=== PATIENT | female | born 1940 | race Caucasian/White ===

== ENCOUNTER → 2018-01-04 | Outpatient (CLI) | payer OTHER ==
[~2018-01-04] MED LIST: AMOCLA875 PO; CARV6.25 PO; CIPRO500 MG PO; CONESTTC PV; DIGO.125 PO; FURO20 PO; LISI5 PO; MEDR10 PO; MINO100 PO; MULVITMIND PO; OXYACE5T PO; Roxicodone5 MG PO; WARF2 PO
[2018-01-04 18:02] LABS: BASOPHILS ABSOLUTE AUTO 0.05 K/mm3 (0.00-0.23); BASOPHILS PERCENT AUTO 1 % (0-2); EOSINOPHILS ABSOLUTE AUTO 0.11 K/mm3 (0.00-0.68); EOSINOPHILS PERCENT AUTO 2 % (0-6); Hematocrit 40.3 % (33.0-51.0); IMMATURE GRAN ABSOLUTE AUTO 0.01 K/mm3 (0.00-0.10); IMMATURE GRAN PERCENT AUTO 0 % (0-1); LYMPHOCYTES ABSOLUTE AUTO 1.91 K/mm3 (0.84-5.20); LYMPHOCYTES PERCENT AUTO 29 % (21-46); MONOCYTES ABSOLUTE AUTO 0.52 K/mm3 (0.16-1.47); MONOCYTES PERCENT AUTO 8 % (4-13); Mean Corpuscular HGB 29.5 pg (26.0-34.0); Mean Corpuscular HGB Conc 32.3 g/dL (31.5-36.5); Mean Corpuscular Volume 91 fL (80-100); Mean Platelet Volume 12.7 fL (9.1-12.4); NEUTROPHILS ABSOLUTE AUTO 3.98 K/mm3 (1.96-9.15); NEUTROPHILS PERCENT AUTO 60 % (41-73); Platelet Count 197 K/mm3 (150-400); RDW Coefficient Variation 14.2 % (11.7-14.2); RDW Standard Deviation 47.8 fL (35.1-46.3); Red Blood Cell Count 4.41 M/mm3 (3.80-5.20); White Blood Cell Count 6.58 K/mm3 (4.00-11.30)
[2018-01-04 18:36] LABS: Alanine Aminotransfer (ALT/SGP 31 U/L (12-78); Albumin, Blood 4.1 g/dL (3.4-5.0); Albumin/Globulin Ratio 1.6 (0.8-1.8); Alk Phos 90 U/L (50-136); Anion Gap 8 mmol/L (6-16); Aspartate Aminotrans (AST/SGOT 30 U/L (12-37); Bilirubin, Total 0.6 mg/dL (0.1-1.0); Blood Urea Nitrogen 20 mg/dL (8-24); Bun/Creatinine Ratio 29.9 (12.0-20.0); CO2, Blood 33 mmol/L (21-32); Calcium, Blood 9.5 mg/dL (8.5-10.1); Chloride, Blood 102 mmol/L (98-108); Creatinine, Blood 0.67 mg/dL (0.40-1.00); Globulin, Blood 2.5 g/dL (2.2-4.0); Glomerular Filtration Rate >60 (60-); Glucose, Blood 92 mg/dL (70-99); Potassium, Blood 4.4 mmol/L (3.5-5.5); Sodium, Blood 143 mmol/L (136-145); Total Protein, Blood 6.6 g/dL (6.4-8.2)
== END | disposition home or self-care (01) ==
LOC: LAB SHORT 15:37 → LAB 15:37
PROVIDERS: Nurse Practitioner Adult Health
DX: I48.91 Unspecified atrial fibrillation (principal)
CPT/HCPCS: 80053; 85025

== ENCOUNTER → 2018-05-10 | Outpatient (CLI) | payer OTHER | END | disposition home or self-care (01) | LOC: LAB SHORT 14:45 → LAB 14:45 | DX: R30.0 Dysuria (principal) | CPT/HCPCS: 87077; 87086; 87186 ==

== ENCOUNTER 2018-10-25 09:15 | Day surgery (SDC) | payer OTHER ==
[~2018-10-25] VITALS: Ht 157.5 cm; Wt 54.0 kg
[~2018-10-25 09:15] MED LIST changes: +ACETAMINOPHEN500 MG PO; +ATOR20 PO; +Acidophilus La100 GM; +Aspirin EC81 MG PO; +Calcium Citrat1 EA10 PO; +Cvs Glucosamin1 EAC2 PO; +FISH OIL 1,0001 EAC1 PO; +GABA600 PO; +GINKGO BILOBA120 MG; +Ginseng100 MG PO; +L-Lysine500 M1 PO; +Multiple Vitam1 EACH PO; +Nitrostat0.4 MG SL; +TRAM50; +VITAMIN C500 M1 PO
[2018-10-25 10:25] LABS: International Normalized Ratio 1.36
--- NOTE | 2018-10-25 10:54 | NUR ---
10/25/18 1054 Miguel Yoo A LATE ENTRY FOR 1020. DR QUICK NOTIFIED THAT THE RESULTS FROM THE STAT PT/INR HE ORDERED IN PRE OP WOULD NOT BE READY FOR AN ADDITIONAL [address] QUICK OKAYED BRINGING THE PT INTO THE OR FOR THE MAY BLOCK WITHOUT HAVING THE RESULTS. DR AGUILAR ALSO OKAY WITH BRINGING THE PT TO THE OR WITHOUT RESULTS.
--- NOTE | 2018-10-25 12:25 | NUR ---
10/25/18 1225 Frank White PATIENT INTO SDU RECLINER RESTING COMFORTABLY, IS AT CHAIRSIDE. PATIENT VSS, TOLERATING PO FLUIDS WELL, NO COMPLAINTS AT THIS TIME. DISCHARGE INSTRUCTIONS REVIEWED WITH PATIENT AND , BOTH DENY HAVING ANY QUESTIONS AT THE MOMENT. [place] EXPLAINED AND PUT ON PATIENT PER MD ORDER. NURSE ASSISTED PATIENT VIA WC TO HER RIDE HOME.
== END 2018-10-25 12:17 | disposition home or self-care (01) ==
LOC: ORSCSDS 09:15
PROVIDERS: Orthopaedic Surgery
PROC: 01N50ZZ Release Median Nerve, Open Approach (ICD-10-PCS; principal; 2018-10-25 10:15)
DX: G56.01 Carpal tunnel syndrome, right upper limb (principal); I48.91 Unspecified atrial fibrillation; I25.10 Atherosclerotic heart disease of native coronary artery without angina pectoris; I12.9 Hypertensive chronic kidney disease with stage 1 through stage 4 chronic kidney disease, or unspecified chronic kidney disease; E11.22 Type 2 diabetes mellitus with diabetic chronic kidney disease; N18.9 Chronic kidney disease, unspecified; Z79.899 Other long term (current) drug therapy; Z79.01 Long term (current) use of anticoagulants; Z79.82 Long term (current) use of aspirin
CPT/HCPCS: 82947; 85610; J0690; J2250; J3010; J7120

== ENCOUNTER 2019-06-28 17:00 | Emergency (ER) | payer OTHER ==
[~2019-06-28] VITALS: Ht 157.5 cm; Wt 54.4 kg
[2019-06-28 17:51] LABS: BASOPHILS ABSOLUTE AUTO 0.04 K/mm3 (0.00-0.23); BASOPHILS PERCENT AUTO 1 % (0-2); EOSINOPHILS ABSOLUTE AUTO 0.08 K/mm3 (0.00-0.68); EOSINOPHILS PERCENT AUTO 1 % (0-6); Hematocrit 38.8 % (33.0-51.0); Hemoglobin 12.4 g/dL (11.5-16.0); IMMATURE GRAN ABSOLUTE AUTO 0.01 K/mm3 (0.00-0.10); IMMATURE GRAN PERCENT AUTO 0 % (0-1); LYMPHOCYTES ABSOLUTE AUTO 1.84 K/mm3 (0.84-5.20); LYMPHOCYTES PERCENT AUTO 24 % (21-46); MONOCYTES ABSOLUTE AUTO 0.67 K/mm3 (0.16-1.47); MONOCYTES PERCENT AUTO 9 % (4-13); Mean Corpuscular Volume 94 fL (80-100); NEUTROPHILS PERCENT AUTO 66 % (41-73); Platelet Count 229 K/mm3 (150-400); RDW Coefficient Variation 14.4 % (11.7-14.2); RDW Standard Deviation 49.7 fL (35.1-46.3); Red Blood Cell Count 4.13 M/mm3 (3.80-5.20); White Blood Cell Count 7.84 K/mm3 (4.00-11.30)
[2019-06-28 18:07] LABS: International Normalized Ratio 3.38; Prothrombin Time Results 32.1 Sec (9.7-11.5)
[2019-06-28 18:14] LABS: Alanine Aminotransfer (ALT/SGP 25 U/L (12-78); Albumin, Blood 3.9 g/dL (3.4-5.0); Albumin/Globulin Ratio 1.2 (0.8-1.8); Alk Phos 105 U/L (50-136); Anion Gap 2 mmol/L (6-16); Aspartate Aminotrans (AST/SGOT 24 U/L (12-37); Bilirubin, Total 0.6 mg/dL (0.1-1.0); Blood Urea Nitrogen 15 mg/dL (8-24); Bun/Creatinine Ratio 27.7 (12.0-20.0); CO2, Blood 31 mmol/L (21-32); Calcium, Blood 9.9 mg/dL (8.5-10.1); Chloride, Blood 105 mmol/L (98-108); Creatinine, Blood 0.54 mg/dL (0.40-1.00); Globulin, Blood 3.3 g/dL (2.2-4.0); Glomerular Filtration Rate >60 (60-); Glucose, Blood 95 mg/dL (70-99); Potassium, Blood 4.4 mmol/L (3.5-5.5); Sodium, Blood 138 mmol/L (136-145); Total Protein, Blood 7.2 g/dL (6.4-8.2)
[2019-06-28] MEDS ORDERED: Norco 5-325 Ta1 EACH PO (20:51)
== END 2019-06-28 21:11 | disposition home or self-care (01) ==
LOC: ER 17:00
PROVIDERS: Physician Assistant
DX: S20.221A Contusion of right back wall of thorax, initial encounter (principal); R79.1 Abnormal coagulation profile; I48.91 Unspecified atrial fibrillation; I11.0 Hypertensive heart disease with heart failure; I50.9 Heart failure, unspecified; Z87.440 Personal history of urinary (tract) infections; Z88.2 Allergy status to sulfonamides; Z91.018 Allergy to other foods; Z79.899 Other long term (current) drug therapy; Z79.01 Long term (current) use of anticoagulants; Z79.82 Long term (current) use of aspirin; W18.2XXA Fall in (into) shower or empty bathtub, initial encounter
CPT/HCPCS: 70450; 71046; 80053; 85025; 85610; 85730; 99284-25

== ENCOUNTER 2021-03-07 14:24 | Emergency (ER) | payer OTHER ==
[~2021-03-07] VITALS: Ht 154.9 cm; Wt 54.4 kg
[~2021-03-07 14:24] MED LIST changes: +Norco 5-325 Ta1 EACH PO
[2021-03-07 16:00] LABS: Chloride (POC) 104 mmol/L (98-108); Creatinine (POC) 0.6 mg/dL (0.6-1.0); Glucose (ISTAT POC) 123 mg/dL (70-99); Hemoglobin (POC) 12.2 g/dL (12.0-16.0); Potassium (POC) 3.9 mmol/L (3.5-5.5); Sodium (POC) 140 mmol/L (135-148); Total CO2 (POC) 26 mmol/L (21-32)
[2021-03-07 16:34] LABS: Source, Urine Clean Catch
[2021-03-07 16:38] LABS: Appearance, Urine Cloudy (Clear); Bilirubin, Urine Neg (Neg); Blood, Urine 3+ (Neg); Color, Urine Yellow (P-Yellow); Glucose Qualitative, Urine Neg (Neg); Ketones, Urine Neg (Neg); Leukocyte Esterase, Urine 2+ (Neg); Nitrite, Urine Neg (Neg); Protein, Urine 1+ (Neg); Urobilinogen, Urine NORM (Normal)
[2021-03-07 16:55] LABS: Bacteria Many /hpf; Red Blood Cells, Urine 0-2 /hpf (0-2); Squamous Epithelial Cells Few /hpf (Few)
== END 2021-03-07 18:31 | disposition home or self-care (01) ==
LOC: ER 14:24
PROVIDERS: Physician Assistant
DX: S70.02XA Contusion of left hip, initial encounter (principal); S30.0XXA Contusion of lower back and pelvis, initial encounter; Z79.01 Long term (current) use of anticoagulants; W18.30XA Fall on same level, unspecified, initial encounter; I11.0 Hypertensive heart disease with heart failure; I50.9 Heart failure, unspecified; Z79.899 Other long term (current) drug therapy
CPT/HCPCS: 73502; 74177; 80047; 81001; 85014; 87077; 87086; 87186; 99284-25; Q9967

== ENCOUNTER → 2021-04-28 | Outpatient (CLI) | payer OTHER ==
[2021-04-28 20:11] LABS: BASOPHILS ABSOLUTE AUTO 0.04 K/mm3 (0.00-0.23); BASOPHILS PERCENT AUTO 1 % (0-2); EOSINOPHILS ABSOLUTE AUTO 0.14 K/mm3 (0.00-0.68); EOSINOPHILS PERCENT AUTO 3 % (0-6); Hematocrit 37.8 % (33.0-51.0); Hemoglobin 12.2 g/dL (11.5-16.0); IMMATURE GRAN ABSOLUTE AUTO 0.01 K/mm3 (0.00-0.10); IMMATURE GRAN PERCENT AUTO 0 % (0-1); LYMPHOCYTES ABSOLUTE AUTO 1.72 K/mm3 (0.84-5.20); LYMPHOCYTES PERCENT AUTO 33 % (21-46); MONOCYTES ABSOLUTE AUTO 0.55 K/mm3 (0.16-1.47); MONOCYTES PERCENT AUTO 11 % (4-13); Mean Corpuscular HGB 30.3 pg (26.0-34.0); Mean Corpuscular HGB Conc 32.3 g/dL (31.5-36.5); Mean Corpuscular Volume 94 fL (80-100); Mean Platelet Volume 12.6 fL (9.1-12.4); NEUTROPHILS PERCENT AUTO 53 % (41-73); Platelet Count 207 K/mm3 (150-400); RDW Coefficient Variation 15.2 % (11.7-14.2); RDW Standard Deviation 53.1 fL (35.1-46.3); Red Blood Cell Count 4.02 M/mm3 (3.80-5.20); White Blood Cell Count 5.26 K/mm3 (4.00-11.30)
[2021-04-28 20:31] LABS: Very Low Density Lipoprot Chol 23 mg/dL (6-32)
[2021-04-28 20:33] LABS: Alanine Aminotransfer (ALT/SGP 27 U/L (12-78); Albumin, Blood 3.8 g/dL (3.4-5.0); Albumin/Globulin Ratio 1.1 (0.8-1.8); Alk Phos 84 U/L (50-136); Anion Gap 3 mmol/L (6-16); Aspartate Aminotrans (AST/SGOT 21 U/L (12-37); Bilirubin, Total 0.5 mg/dL (0.1-1.0); Blood Urea Nitrogen 18 mg/dL (8-24); CHOL/HDL RATIO 2.9; CO2, Blood 32 mmol/L (21-32); Calcium, Blood 9.7 mg/dL (8.5-10.1); Chloride, Blood 106 mmol/L (98-108); Cholesterol 164 mg/dL (50-200); Creatinine, Blood 0.56 mg/dL (0.40-1.00); Globulin, Blood 3.5 g/dL (2.2-4.0); Glomerular Filtration Rate >60 (60-); Glucose, Blood 103 mg/dL (70-99); HDL Cholesterol 56 mg/dL (>39); LDL/HDL RATIO 1.5; Low Density Lipoprotein Chol 85 mg/dL (0-110); Potassium, Blood 4.2 mmol/L (3.5-5.5); Sodium, Blood 141 mmol/L (136-145); Total Protein, Blood 7.3 g/dL (6.4-8.2); Triglycerides 115 mg/dL (30-160)
== END | disposition home or self-care (01) ==
LOC: LAB SHORT 18:03
PROVIDERS: Nurse Practitioner
DX: E78.5 Hyperlipidemia, unspecified (principal); E11.9 Type 2 diabetes mellitus without complications; I10 Essential (primary) hypertension
CPT/HCPCS: 80053; 80061; 83036; 85025

== ENCOUNTER 2022-10-22 11:56 | Inpatient (IN) | payer OTHER ==
[~2022-10-22] VITALS: Ht 157.5 cm; Wt 56.7 kg
[~2022-10-22 11:56] MED LIST changes: +GABA300 PO; -GABA600 PO
[2022-10-22 12:25] LABS: Base Excess Venous -1.5 mmol/L; Bicarbonate Venous 21.3 mmol/L (24.0-30.0); PCO2 Venous 67.1 mmHg (38-42)
[2022-10-22 12:27] LABS: BASOPHILS ABSOLUTE AUTO 0.06 K/mm3 (0.00-0.23); BASOPHILS PERCENT AUTO 1 % (0-2); EOSINOPHILS PERCENT AUTO 2 % (0-6); Hematocrit 42.1 % (33.0-51.0); Hemoglobin 13.5 g/dL (11.5-16.0); IMMATURE GRAN ABSOLUTE AUTO 0.03 K/mm3 (0.00-0.10); IMMATURE GRAN PERCENT AUTO 0 % (0-1); LYMPHOCYTES ABSOLUTE AUTO 3.48 K/mm3 (0.84-5.20); LYMPHOCYTES PERCENT AUTO 28 % (21-46); MONOCYTES ABSOLUTE AUTO 0.73 K/mm3 (0.16-1.47); MONOCYTES PERCENT AUTO 6 % (4-13); Mean Corpuscular HGB 31.4 pg (26.0-34.0); Mean Corpuscular HGB Conc 32.1 g/dL (31.5-36.5); Mean Corpuscular Volume 98 fL (80-100); Mean Platelet Volume 12.5 fL (9.1-12.4); NEUTROPHILS ABSOLUTE AUTO 8.04 K/mm3 (1.96-9.15); NEUTROPHILS PERCENT AUTO 64 % (41-73); Platelet Count 228 K/mm3 (150-400); RDW Coefficient Variation 13.1 % (11.7-14.2); RDW Standard Deviation 46.5 fL (35.1-46.3); White Blood Cell Count 12.54 K/mm3 (4.00-11.30)
[2022-10-22 13:01] LABS: Albumin/Globulin Ratio 1.1 (0.8-1.8); Bilirubin, Total 0.6 mg/dL (0.1-1.0); Bun/Creatinine Ratio 33.3 (12.0-20.0); Calcium, Blood 9.8 mg/dL (8.5-10.1); Creatinine, Blood 0.69 mg/dL (0.40-1.00); Globulin, Blood 3.5 g/dL (2.2-4.0); Potassium, Blood 4.1 mmol/L (3.5-5.5); Total Protein, Blood 7.5 g/dL (6.4-8.2)
[2022-10-22 15:11] LABS: Digoxin (Lanoxin) <0.06 ug/mL (0.80-2.00)
[2022-10-22] MEDS ORDERED: ELIQUIS2.5 M1 PO (15:11)
[2022-10-22 15:16] LABS: Base Excess Venous 3.9 mmol/L; Bicarbonate Venous 26.6 mmol/L (24.0-30.0); PCO2 Venous 52.3 mmHg (38-42); pH Blood Venous 7.36 (7.34-7.37)
[2022-10-22 15:37] LABS: International Normalized Ratio 1.03; Prothrombin Time Results 10.8 Sec (9.7-11.5)
[2022-10-22 16:22] LABS: Influenza A, PCR NEGATIVE (NEGATIVE); Influenza B, PCR NEGATIVE (NEGATIVE); Resp Syncytial Virus, PCR NEGATIVE (NEGATIVE); SARS-Cov-2 (COVID-19) PCR, MMC NEGATIVE (NEGATIVE)
[2022-10-22] MEDS ORDERED: CARVEDILOL3.125 MG PO (16:44)
[2022-10-22] MEDS ORDERED: LISINOPRIL2.5 MG PO (16:44)
--- NOTE | 2022-10-22 19:24 | NUR ---
ADMIT FROM ER RECIEVED PT FROM ER. PT IS ALERT AND ORIENTED AND ABLE TO USE BEDSIDE COMMODE WITH ONE PERSON ASSIST. 2L NC. BED IS IN THE LOWEST POSITION WITH THE ALARM ON . CALL LIGHT IS WITHIN REACH.
--- NOTE | 2022-10-23 03:53 | NUR ---
SHIFT SUMMARY NOC PT A/O X 4. PT 1PA TO [facility]. PT IS CURRENTLY BEING DIURIESD DUE TO PT STOPPING DIURETICS 6 DAYS AGO BECAUSE SEPTIC SYSTEM IN [facility] HAD ISSUES. PT HAS PULM EDEMA AND BEING GIVEN LASIX. PT ALSO ON TELE WITH AFLUTTER WITH PVC'S @ 99 BPM. PT IS ON 2L/NC SPO2 > 94%. PT HAS PALLIATIVE CARE CONSULT. PT PLAN IS DIURETICS AND RATE CONTROL FOR POSSIBLE DC TODAY. PT IS CURRENTLY RESTING WITH BED ALARM ON, BED IN LOWEST POSITION, AND CALL LIGHT WITHIN REACH.
[2022-10-23 05:16] LABS: Hematocrit 36.3 % (33.0-51.0); Hemoglobin 12.2 g/dL (11.5-16.0); Mean Corpuscular HGB 31.6 pg (26.0-34.0); Mean Corpuscular HGB Conc 33.6 g/dL (31.5-36.5); Mean Corpuscular Volume 94 fL (80-100); Mean Platelet Volume 12.3 fL (9.1-12.4); Platelet Count 199 K/mm3 (150-400); RDW Coefficient Variation 13.2 % (11.7-14.2); RDW Standard Deviation 45.1 fL (35.1-46.3); Red Blood Cell Count 3.86 M/mm3 (3.80-5.20); White Blood Cell Count 9.46 K/mm3 (4.00-11.30)
[2022-10-23 05:54] LABS: Bun/Creatinine Ratio 32.9 (12.0-20.0); Calcium, Blood 9.6 mg/dL (8.5-10.1); Creatinine, Blood 0.7 mg/dL (0.40-1.00); Magnesium, Blood 1.7 mg/dL (1.6-2.4); Potassium, Blood 3.3 mmol/L (3.5-5.5)
--- NOTE | 2022-10-23 18:30 | NUR ---
[facility] SUMMARY PATIENT IS ALERT AND ORIENTED. PATIENT HAS NOT HAD ANY ACUTE EVENTS THIS SHIFT. VITAL SIGNS REVIEWED. PATIENT IS A POSSIBLE DISCHARGE TOMORROW. PATIENT HAS NOT COMPLAINED OF PAIN, SOB, NAUSEA, VOMITTING. PATIENT IS STILL ON THE 2L NASAL CANNULA. PATIENT HAS BEEN PLEASENT AND COOPERATIVE WITH CARE. BED IN LOCKED AND LOWEST POSITION. CALL LIGHT IN PLACE. WILL MONITOR UNTIL SHIFT CHANGE.
--- NOTE | 2022-10-24 05:42 | NUR ---
A0X4, PLEASANT, STABLE VITALS ON 2L NC. TELE IN PLACE, NO CALLS FROM SWEATER OPERATOR. PIV PATENT. NO CLINICAL CHANGES NOTED. TOLERATES PO MEDS. AMBULATES X1 ASSIST WITH WALKER TO BSC FOR MULTIPLE VOIDS. NO EVENTS OVER NIGHT.
--- NOTE | 2022-10-24 17:45 | NUR ---
SHIFT SUMMARY PATIENT IS ALERT AND ORIENTED. PATIENT HAS HAD NO ACUTE EVENTS THIS SHIFT. VITAL SIGNS REVIEWED. PATIENT HAS NOT COMPLAINED OF PAIN, NAUSEA, SOB OR VOMITTING THIS SHIFT. PATIENT HAS A DISCHARGE ORDER. PATIENT IS AWAITING . MIGHT STAY THE NIGHT DEPENDING ON . WILL MONITOR UNTIL SHIFT CHANGE.
--- NOTE | 2022-10-25 04:24 | NUR ---
ARMORED SERVICE TECHNICIAN SUMMARY A&OX4. PATIENT EFFECTIVELY COMMUNICATES NEEDS. VSS. RR EVEN AND UNLABORED ON RA. NO PAIN OR OTHER SYMPTOMS REPORTED TO THIS RN. PATIENT OBSERVED SLEEPING THROUGHOUT THE NIGHT. BED LOW AND LOCKED. CALL LIGHT WITHIN REACH.
[2022-10-25 05:00] LABS: Hematocrit 35.4 % (33.0-51.0); Hemoglobin 11.8 g/dL (11.5-16.0)
[2022-10-25 05:17] LABS: Albumin, Blood 3.2 g/dL (3.4-5.0); Anion Gap 3 mmol/L (6-16); Blood Urea Nitrogen 29 mg/dL (8-24); Bun/Creatinine Ratio 46.8 (12.0-20.0); CO2, Blood 28 mmol/L (21-32); Chloride, Blood 106 mmol/L (98-108); Creatinine, Blood 0.62 mg/dL (0.40-1.00); Glomerular Filtration Rate 88 (60-); Glucose, Blood 106 mg/dL (70-99); Phosphorus, Blood 3.1 mg/dL (2.5-4.9); Potassium, Blood 4.6 mmol/L (3.5-5.5); Sodium, Blood 137 mmol/L (136-145)
--- NOTE | 2022-10-25 11:54 | NUR ---
NOTE/DISCHARGE SUMMARY: PATIENT A&OX4. CALM, PLEASANT AND COOPERATIVE c CARE. USES CALL LIGHT APPROPRIATELY AND ABLE TO ADVOCATE FOR HER NEEDS. PATIENT DENIES CP/CHEST PRESSURE. DENIES SOB, N/V, AND GENERALIZED PAIN. PATIENT AMBULATES TO BATHROOM AND BACK TO BED c SBA. PATIENT RECEIVED SCHEDULE MEDS THIS AM. TOLERATED DIET WELL. REPORTS OF HAVING BM YESTERDAY. VITAL SIGNS REVIEWED. IV TO R FOREARM WAS DC'D BY CREDIT RISK SPECIALIST STAFF, NEREYDA VITAL. PATIENT DISCHARGE HOME. DISCHARGE INSTRUCTION PACKET GIVEN TO PATIENT. EDUCATE PATIENT REGARDING ADMITTING DX, S/S, TX AND NEW PRESCRIBED MEDICATIONS. PATIENT STATED UNDERSTANDING AND NO FURTHER QUESTIONSS. RX WAS FAXED TO [facility] YESTERDAY BY ASSIGNED RN. NO NEW MEDICATION CHANGES TODAY. ALL PERSONAL BELONGINGS WERE SENT HOME c THE PATIENT. PATIENT LEFT THE ROOM AT AROUND 1145, TRANSPORTED VIA WHEELCHAIR BY CREDIT RISK SPECIALIST STAFF NEREYDA VITAL TO PATIENT SPOUSE PRIVATE VEHICLE.
== END 2022-10-25 12:57 | disposition home or self-care (01) | DRG 291 ==
LOC: ER 11:56 → MEDS 14:26 → ENPENDDIS 10-24 10:31 → MEDS 10-25 12:57
PROVIDERS: Emergency Medicine; Family Medicine Adult Medicine; Nurse Practitioner Acute Care; ADMIT Student in an Organized Health Care Education/Training Program
PROC: 5A09357 Assistance with Respiratory Ventilation, Less than 24 Consecutive Hours, Continuous Positive Airway Pressure (ICD-10-PCS; principal; 2022-10-22)
DX: I11.0 Hypertensive heart disease with heart failure (principal); I50.23 Acute on chronic systolic (congestive) heart failure; J96.01 Acute respiratory failure with hypoxia; J96.02 Acute respiratory failure with hypercapnia; I48.91 Unspecified atrial fibrillation; E87.6 Hypokalemia; T50.2X5A Adverse effect of carbonic-anhydrase inhibitors, benzothiadiazides and other diuretics, initial encounter; M19.90 Unspecified osteoarthritis, unspecified site; E78.5 Hyperlipidemia, unspecified; L71.9 Rosacea, unspecified; Z20.822 Contact with and (suspected) exposure to COVID-19; Z90.49 Acquired absence of other specified parts of digestive tract; Z87.440 Personal history of urinary (tract) infections; Z98.890 Other specified postprocedural states; Z98.42 Cataract extraction status, left eye; Z95.0 Presence of cardiac pacemaker; Z91.018 Allergy to other foods; Z88.2 Allergy status to sulfonamides; Z91.14 Patient's other noncompliance with medication regimen
CPT/HCPCS: 0241U; 36415; 71045; 80048; 80053; 80069; 80162; 82803; 83605; 83735; 83880; 84132; 84484; 85014; 85018; 85025; 85027; 85610; 93005; 93010; 94660; 94760; 96374; 96376; 99285-25; A9270; G0378; J1940

== ENCOUNTER 2023-01-23 19:26 | Emergency (ER) | payer OTHER ==
[~2023-01-23] VITALS: Ht 157.5 cm; Wt 59.0 kg
[~2023-01-23 19:26] MED LIST changes: +CARVEDILOL3.125 MG PO; +ELIQUIS2.5 M1 PO; +LISINOPRIL2.5 MG PO
[2023-01-23] MEDS ORDERED: Cyclobenzaprine5 MG PO (19:56)
[2023-01-23] MEDS ORDERED: OXYC5 PO (19:57)
[2023-01-23 20:22] LABS: Source, Urine Clean Catch
[2023-01-23 20:33] LABS: Bilirubin, Urine Neg (Neg); Blood, Urine Neg (Neg); Glucose Qualitative, Urine Neg (Neg); Ketones, Urine Neg (Neg); Leukocyte Esterase, Urine Neg (Neg); Nitrite, Urine Neg (Neg); Protein, Urine Neg (Neg); Urobilinogen, Urine NORM (Normal)
[2023-01-23 20:34] LABS: Appearance, Urine Clear (Clear); Color, Urine Yellow (P-Yellow)
[2023-01-23 21:13] LABS: BASOPHILS ABSOLUTE AUTO 0.04 K/mm3 (0.00-0.23); BASOPHILS PERCENT AUTO 1 % (0-2); EOSINOPHILS ABSOLUTE AUTO 0.09 K/mm3 (0.00-0.68); EOSINOPHILS PERCENT AUTO 1 % (0-6); Hematocrit 39.9 % (33.0-51.0); Hemoglobin 13.3 g/dL (11.5-16.0); IMMATURE GRAN ABSOLUTE AUTO 0.03 K/mm3 (0.00-0.10); IMMATURE GRAN PERCENT AUTO 0 % (0-1); LYMPHOCYTES ABSOLUTE AUTO 2.25 K/mm3 (0.84-5.20); LYMPHOCYTES PERCENT AUTO 27 % (21-46); MONOCYTES ABSOLUTE AUTO 0.76 K/mm3 (0.16-1.47); MONOCYTES PERCENT AUTO 9 % (4-13); Mean Corpuscular HGB 30.9 pg (26.0-34.0); Mean Corpuscular HGB Conc 33.3 g/dL (31.5-36.5); Mean Corpuscular Volume 93 fL (80-100); Mean Platelet Volume 11.5 fL (9.1-12.4); NEUTROPHILS ABSOLUTE AUTO 5.19 K/mm3 (1.96-9.15); NEUTROPHILS PERCENT AUTO 62 % (41-73); Platelet Count 232 K/mm3 (150-400); RDW Standard Deviation 44.2 fL (35.1-46.3); Red Blood Cell Count 4.31 M/mm3 (3.80-5.20); White Blood Cell Count 8.36 K/mm3 (4.00-11.30)
[2023-01-23 22:00] VITALS: BP 173/71
== END 2023-01-23 22:23 | disposition home or self-care (01) ==
LOC: ER 19:26
PROVIDERS: Student in an Organized Health Care Education/Training Program
DX: M54.9 Dorsalgia, unspecified (principal); R10.9 Unspecified abdominal pain; I11.0 Hypertensive heart disease with heart failure; I50.22 Chronic systolic (congestive) heart failure; I48.91 Unspecified atrial fibrillation; E11.9 Type 2 diabetes mellitus without complications; Z88.2 Allergy status to sulfonamides; Z91.018 Allergy to other foods; Z79.899 Other long term (current) drug therapy; Z79.01 Long term (current) use of anticoagulants; Z79.82 Long term (current) use of aspirin
CPT/HCPCS: 36415; 74177; 81003; 85025; 99284-25; Q9967

== ENCOUNTER → 2023-04-22 | Outpatient (CLI) | payer OTHER ==
[~2023-04-22] MED LIST changes: +CALCIUM CITRATE PO; -Calcium Citrat1 EA10 PO; -Cvs Glucosamin1 EAC2 PO; +Cyclobenzaprine5 MG PO; -DIGO.125 PO; +DIGOX125 MC1 PO; +FISH OIL 1 PO; -FISH OIL 1,0001 EAC1 PO; +OXYC5 PO; +[UNRECOGNIZED DRUG - OTHER] PO; +[UNRECOGNIZED DRUG - OTHER] PO
[2023-04-22 16:50] LABS: CHOL/HDL RATIO 2.9; Cholesterol 141 mg/dL (50-200); HDL Cholesterol 49 mg/dL (>39); LDL/HDL RATIO 1.3; Low Density Lipoprotein Chol 66 mg/dL (0-110); Triglycerides 131 mg/dL (30-160); Very Low Density Lipoprot Chol 26 mg/dL (6-32)
== END ==
LOC: LAB SHORT 11:50 → LAB 11:50
PROVIDERS: Family Medicine
DX: E78.5 Hyperlipidemia, unspecified (principal)
CPT/HCPCS: 36415; 80061

== ENCOUNTER 2024-01-30 09:18 | Day surgery (SDC) | payer OTHER ==
[~2024-01-30] VITALS: Ht 157.5 cm; Wt 61.8 kg
[~2024-01-30 09:18] MED LIST changes: +CeFAZolin Sodium 2,000 MG VIAL ONE; +Lactated Ringer's 1,000 ML IV ONE; +NS 50 ML IV ONE
[2024-01-30] MEDS ORDERED: MULVITA PO (09:37)
[2024-01-30] MEDS ORDERED: OXAYDO5 M9 PO (09:40)
[2024-01-30] MEDS ORDERED: NITR.4SL SL (09:41)
[2024-01-30] MEDS ORDERED: Lactated Ringer's 1,000 ML IV ONE (10:04)
[2024-01-30] MEDS ORDERED: Midazolam HCl 1MG / ML 2ML Vial ONE (10:21)
[2024-01-30 10:59] VITALS: BP 112/80
== END 2024-01-30 11:57 | disposition home or self-care (01) ==
LOC: ORSCSDS 09:18
PROVIDERS: Orthopaedic Surgery
PROC: 01N50ZZ Release Median Nerve, Open Approach (ICD-10-PCS; principal; 2024-01-30 10:15)
DX: G56.02 Carpal tunnel syndrome, left upper limb (principal); I12.9 Hypertensive chronic kidney disease with stage 1 through stage 4 chronic kidney disease, or unspecified chronic kidney disease; I48.91 Unspecified atrial fibrillation; E11.22 Type 2 diabetes mellitus with diabetic chronic kidney disease; N18.9 Chronic kidney disease, unspecified; Z79.01 Long term (current) use of anticoagulants; Z79.899 Other long term (current) drug therapy
CPT/HCPCS: 82947; J0690; J2250; J7120

== ENCOUNTER 2024-03-21 17:40 | Inpatient (IN) | payer OTHER ==
[~2024-03-21] VITALS: Ht 157.5 cm; Wt 62.4 kg
[~2024-03-21 17:40] MED LIST changes: -CeFAZolin Sodium 2,000 MG VIAL ONE; -Lactated Ringer's 1,000 ML IV ONE; +MULVITA PO; +NITR.4SL SL; -NS 50 ML IV ONE; +OXAYDO5 M9 PO
[2024-03-21 18:25] LABS: BASOPHILS ABSOLUTE AUTO 0.04 K/mm3 (0.00-0.23); BASOPHILS PERCENT AUTO 1 % (0-2); EOSINOPHILS ABSOLUTE AUTO 0.11 K/mm3 (0.00-0.68); EOSINOPHILS PERCENT AUTO 2 % (0-6); Hematocrit 38.6 % (33.0-51.0); Hemoglobin 12.5 g/dL (11.5-16.0); IMMATURE GRAN ABSOLUTE AUTO 0.01 K/mm3 (0.00-0.10); IMMATURE GRAN PERCENT AUTO 0 % (0-1); LYMPHOCYTES ABSOLUTE AUTO 1.41 K/mm3 (0.84-5.20); LYMPHOCYTES PERCENT AUTO 24 % (21-46); MONOCYTES ABSOLUTE AUTO 0.52 K/mm3 (0.16-1.47); MONOCYTES PERCENT AUTO 9 % (4-13); Mean Corpuscular HGB 30.8 pg (26.0-34.0); Mean Corpuscular HGB Conc 32.4 g/dL (31.5-36.5); Mean Corpuscular Volume 95 fL (80-100); Mean Platelet Volume 12.1 fL (9.1-12.4); NEUTROPHILS ABSOLUTE AUTO 3.79 K/mm3 (1.96-9.15); NEUTROPHILS PERCENT AUTO 64 % (41-73); Platelet Count 188 K/mm3 (150-400); RDW Coefficient Variation 13.3 % (11.7-14.2); RDW Standard Deviation 46.7 fL (35.1-46.3); Red Blood Cell Count 4.06 M/mm3 (3.80-5.20); White Blood Cell Count 5.88 K/mm3 (4.00-11.30)
[2024-03-21 18:48] LABS: Albumin, Blood 3.8 g/dL (3.4-5.0); Albumin/Globulin Ratio 1.1 (0.8-1.8); Bilirubin, Total 0.6 mg/dL (0.1-1.0); Bun/Creatinine Ratio 25.5 (12.0-20.0); Calcium, Blood 9.5 mg/dL (8.5-10.1); Creatinine, Blood 0.78 mg/dL (0.40-1.00); Globulin, Blood 3.4 g/dL (2.2-4.0); Potassium, Blood 4.6 mmol/L (3.5-5.5); Total Protein, Blood 7.2 g/dL (6.4-8.2)
[2024-03-21 22:46] LABS: Source, Urine Clean Catch
[2024-03-21] MEDS ORDERED: Lidocaine 4% 1 Patch TOP ONE (22:50)
[2024-03-21] MEDS ORDERED: Methocarbamol 500 MG Tab PO ONE (22:50)
[2024-03-21] MEDS ORDERED: Ketorolac Tromethamine 15mg Vial IV ONE (22:50)
[2024-03-21 22:53] LABS: Bilirubin, Urine Neg (Neg); Blood, Urine Neg (Neg); Glucose Qualitative, Urine Neg (Neg); Ketones, Urine Neg (Neg); Leukocyte Esterase, Urine Neg (Neg); Nitrite, Urine Neg (Neg); Protein, Urine Neg (Neg); Urobilinogen, Urine NORM (Normal)
[2024-03-21 23:03] LABS: Appearance, Urine Clear (Clear); Color, Urine Pale Yellow (P-Yellow)
[2024-03-21] MEDS ORDERED: Furosemide 10 MG / ML 2ML Vial IV ONE ×2 (23:20→23:40)
[2024-03-22] MEDS ORDERED: Magnesium Hydroxide Conc 10 ML UDC PO PRN (00:45)
[2024-03-22] MEDS ORDERED: OxyCODONE HCL 5 MG TAB PO PRN (01:05)
[2024-03-22] MEDS ORDERED: Ipratropium/Albuterol SulF 2.5-0.5MG/3 ML Amp INH PRN (01:05)
[2024-03-22 02:15] VITALS: BP 155/101
[2024-03-22] MEDS ORDERED: Metoprolol Tartrate 1 MG/ML 5 ML VIAL IV PRN (02:20)
[2024-03-22] MEDS ORDERED: Metoprolol Tartrate 50 MG Tab PO SCH (03:00)
--- NOTE | 2024-03-22 03:08 | NUR ---
PATIENT TO ICU 5 AT APPROX 0205 FROM ER. PATIENT SLID TO BED. PATIENT IS ALERT AND ORIENTED X4. SP02 95% ON RA, PATIENT STATES SLIGHT SOB AT TIMES. HR A.FLUTTER 90-120, BP HYPERTENSIVE AT TIMES. DENIES CP/PRESSURE. PUREWICK IN PLACE. PATIENT ABLE TO REPOSITION SELF. REPORTS 6/10 RIGHT FLANK PAIN, DENIES NEED FOR PAIN MEDICATION AND STATES SHE JUST WANTS TO SLEEP. CALL LIGHT IN REACH.
[2024-03-22 03:15] VITALS: BP 148/84
[2024-03-22] MEDS ORDERED: Cyclobenzaprine HCl 10 MG Tab PO PRN (03:50)
[2024-03-22 03:55] LABS: BASOPHILS ABSOLUTE AUTO 0.05 K/mm3 (0.00-0.23); BASOPHILS PERCENT AUTO 1 % (0-2); EOSINOPHILS ABSOLUTE AUTO 0.07 K/mm3 (0.00-0.68); EOSINOPHILS PERCENT AUTO 1 % (0-6); Hematocrit 41.6 % (33.0-51.0); Hemoglobin 13.3 g/dL (11.5-16.0); IMMATURE GRAN ABSOLUTE AUTO 0.03 K/mm3 (0.00-0.10); IMMATURE GRAN PERCENT AUTO 0 % (0-1); LYMPHOCYTES ABSOLUTE AUTO 1.81 K/mm3 (0.84-5.20); LYMPHOCYTES PERCENT AUTO 18 % (21-46); MONOCYTES ABSOLUTE AUTO 0.65 K/mm3 (0.16-1.47); MONOCYTES PERCENT AUTO 7 % (4-13); Mean Corpuscular Volume 94 fL (80-100); Mean Platelet Volume 12.3 fL (9.1-12.4); NEUTROPHILS ABSOLUTE AUTO 7.38 K/mm3 (1.96-9.15); NEUTROPHILS PERCENT AUTO 74 % (41-73); Platelet Count 197 K/mm3 (150-400); RDW Coefficient Variation 13.2 % (11.7-14.2); RDW Standard Deviation 45.1 fL (35.1-46.3); Red Blood Cell Count 4.44 M/mm3 (3.80-5.20); White Blood Cell Count 9.99 K/mm3 (4.00-11.30)
[2024-03-22] MEDS ORDERED: Nitroglycerin 0.4 MG SUBL SL PRN (03:55)
[2024-03-22] MEDS ORDERED: Acetaminophen 325 MG TABLET PO PRN (03:55)
[2024-03-22 04:00] VITALS: BP 117/89
[2024-03-22 04:30] LABS: Anion Gap 9 mmol/L (3-11); Blood Urea Nitrogen 18 mg/dL (8-24); Bun/Creatinine Ratio 29.4 (12.0-20.0); CO2, Blood 28 mmol/L (21-32); Calcium, Blood 9.6 mg/dL (8.5-10.1); Chloride, Blood 107 mmol/L (98-108); Creatinine, Blood 0.61 mg/dL (0.40-1.00); Digoxin (Lanoxin) 0.09 ug/mL (0.80-2.00); Glomerular Filtration Rate 88 (60-); Glucose, Blood 96 mg/dL (70-99); Magnesium, Blood 1.9 mg/dL (1.6-2.4); Potassium, Blood 4.2 mmol/L (3.5-5.5); Sodium, Blood 140 mmol/L (136-145)
[2024-03-22 07:43] VITALS: BP 99/76
[2024-03-22] MEDS ORDERED: Carvedilol 6.25 MG Tab PO SCH (08:00)
[2024-03-22] MEDS ORDERED: Furosemide 10 MG / ML 2ML Vial IV SCH (09:00)
[2024-03-22] MEDS ORDERED: Gabapentin 300 MG Cap PO SCH (09:00)
[2024-03-22] MEDS ORDERED: Lisinopril 5 MG Tab PO SCH (09:00)
[2024-03-22] MEDS ORDERED: Multivitamins 1 Tab PO SCH (09:00)
[2024-03-22] MEDS ORDERED: Apixaban 5 MG Tab PO SCH (09:00)
[2024-03-22] MEDS ORDERED: Ascorbic Acid 1000 MG Tab PO SCH (09:00)
[2024-03-22] MEDS ORDERED: Empagliflozin 10 MG TAB PO SCH (09:00)
[2024-03-22] MEDS ORDERED: Docosahexanoic Acid/EPA 1,000 MG CAP PO SCH (09:00)
[2024-03-22] MEDS ORDERED: Enoxaparin 40 MG/0.4 ML SYR SC SCH (09:00)
[2024-03-22] MEDS ORDERED: Furosemide 10 MG/ML 4ML Vial IV SCH (09:00)
[2024-03-22] MEDS ORDERED: Atorvastatin 10 MG Tab PO SCH (09:00)
[2024-03-22 12:00] VITALS: BP 130/92
--- NOTE | 2024-03-22 12:07 | NUR ---
Pt. is resting in her bed but reponds when I enter the room. Pt. is pleasant. As I began a life review the Pt. shared about her flo and the circumstances of what brought her to buddhism. Listen with interest and empathy. Pt. also verbalized about her home out past [place]. pt. did not verbalize any particular concerns, but did welcome prayer. Prayed with the Pt. Pt. verbalized gratitude for the spiritual care visit.
[2024-03-22] MEDS ORDERED: JARDIANCE10 MG PO (17:04)
[2024-03-22] MEDS ORDERED: Aldactone25 MG PO (17:05)
--- NOTE | 2024-03-22 18:14 | NUR ---
SUMMARY PT A/O X4. HAS PAIN IN BACK/FLANK WITH MOVEMENT. STATES IT'S A 9/10 PAIN WHILE MOVING. THORACIC/LUMBAR SPINE XRAY COMPLETE. ECHO DONE. PT WORKED WITH PT/OT. USING FWW. PT WILL BE DISCHARGING HOME. RX SENT TO [facility] AND SPOUSE IS PICKING THEM UP. D/C INSTRUCTIONS PROVIDED. NO SIGN OF DISTRESS. AWAITING RIDE HOME.
== END 2024-03-22 18:57 | disposition home or self-care (01) | DRG 291 ==
LOC: ER 17:40 → PCU 03-22 00:43 → ICUE 03-22 02:03
PROVIDERS: Family Medicine; Student in an Organized Health Care Education/Training Program; ADMIT Student in an Organized Health Care Education/Training Program
PROC: 5A09357 Assistance with Respiratory Ventilation, Less than 24 Consecutive Hours, Continuous Positive Airway Pressure (ICD-10-PCS; principal; 2024-03-22)
DX: I11.0 Hypertensive heart disease with heart failure (principal); I50.23 Acute on chronic systolic (congestive) heart failure; J96.01 Acute respiratory failure with hypoxia; I48.20 Chronic atrial fibrillation, unspecified; I48.91 Unspecified atrial fibrillation; M81.0 Age-related osteoporosis without current pathological fracture; I25.10 Atherosclerotic heart disease of native coronary artery without angina pectoris; G89.29 Other chronic pain; Z87.440 Personal history of urinary (tract) infections; Z98.1 Arthrodesis status; M54.50 Low back pain, unspecified; M54.6 Pain in thoracic spine; Z90.49 Acquired absence of other specified parts of digestive tract; Z88.2 Allergy status to sulfonamides; Z88.8 Allergy status to other drugs, medicaments and biological substances; Z91.018 Allergy to other foods; Z79.899 Other long term (current) drug therapy; Z79.01 Long term (current) use of anticoagulants; Z79.811 Long term (current) use of aromatase inhibitors; Z79.891 Long term (current) use of opiate analgesic
CPT/HCPCS: 36415; 71045; 72070; 72100; 74177; 80048; 80053; 80162; 81003; 83690; 83735; 83880; 84443; 85025; 93005; 93010; 93306; 94660; 94762; 96374-59; 96375; 96376; 97116; 97161; 97165; 97530; 99285-25; A9270; J1885; J1940; Q9967

== ENCOUNTER 2024-11-22 17:42 | Emergency (ER) | payer OTHER ==
[~2024-11-22] VITALS: Ht 157.5 cm; Wt 59.0 kg
[~2024-11-22 17:42] MED LIST changes: +Aldactone25 MG PO; +BENZ100A PO; +Carvedilol12.5 MG PO; +ENTRESTO 24 MG1 EACH PO; +FISH OIL 1,0001 EA10 PO; +JARDIANCE10 MG PO
[2024-11-22 18:44] LABS: BASOPHILS ABSOLUTE AUTO 0.05 K/mm3 (0.00-0.23); BASOPHILS PERCENT AUTO 1 % (0-2); EOSINOPHILS ABSOLUTE AUTO 0.09 K/mm3 (0.00-0.68); EOSINOPHILS PERCENT AUTO 1 % (0-6); Hematocrit 37.1 % (33.0-51.0); Hemoglobin 12.1 g/dL (11.5-16.0); IMMATURE GRAN ABSOLUTE AUTO 0.03 K/mm3 (0.00-0.10); IMMATURE GRAN PERCENT AUTO 0 % (0-1); LYMPHOCYTES ABSOLUTE AUTO 2.14 K/mm3 (0.84-5.20); LYMPHOCYTES PERCENT AUTO 23 % (21-46); MONOCYTES ABSOLUTE AUTO 0.58 K/mm3 (0.16-1.47); MONOCYTES PERCENT AUTO 6 % (4-13); Mean Corpuscular HGB Conc 32.6 g/dL (31.5-36.5); Mean Corpuscular Volume 95 fL (80-100); Mean Platelet Volume 11.9 fL (9.1-12.4); NEUTROPHILS ABSOLUTE AUTO 6.28 K/mm3 (1.96-9.15); NEUTROPHILS PERCENT AUTO 69 % (41-73); Platelet Count 220 K/mm3 (150-400); RDW Coefficient Variation 14.3 % (11.7-14.2); RDW Standard Deviation 49.1 fL (35.1-46.3); White Blood Cell Count 9.17 K/mm3 (4.00-11.30)
[2024-11-22 19:17] LABS: Albumin, Blood 3.7 g/dL (3.4-5.0); Bilirubin, Total 0.8 mg/dL (0.1-1.0); Bun/Creatinine Ratio 36.2 (12.0-20.0); Calcium, Blood 9.8 mg/dL (8.5-10.1); Creatinine, Blood 0.64 mg/dL (0.40-1.00); Globulin, Blood 3.6 g/dL (2.2-4.0); Total Protein, Blood 7.3 g/dL (6.4-8.2)
[2024-11-22] MEDS ORDERED: Morphine Sulfate 4 MG/1 ML Injection IV ONE (21:20)
[2024-11-22 23:01] LABS: Source, Urine Clean Catch
[2024-11-22 23:07] LABS: Appearance, Urine Clear (Clear); Bilirubin, Urine Neg (Neg); Blood, Urine Neg (Neg); Color, Urine Yellow (P-Yellow); Glucose Qualitative, Urine Neg (Neg); Ketones, Urine Neg (Neg); Leukocyte Esterase, Urine Neg (Neg); Nitrite, Urine Neg (Neg); Protein, Urine Neg (Neg); Urobilinogen, Urine NORM (Normal)
[2024-11-22] MEDS ORDERED: Azithromycin 500 MG in NS 250 ML IV ONE (23:45)
[2024-11-22] MEDS ORDERED: CefTRIAXone Sodium 1,000 MG in NS 50 ML IV ONE (23:45)
[2024-11-23 01:45] VITALS: BP 142/87
== END 2024-11-23 01:45 | disposition home or self-care (01) ==
LOC: ER 17:42
PROVIDERS: Emergency Medicine; Student in an Organized Health Care Education/Training Program
DX: J18.9 Pneumonia, unspecified organism (principal); R10.9 Unspecified abdominal pain; G89.29 Other chronic pain; I48.91 Unspecified atrial fibrillation; I11.9 Hypertensive heart disease without heart failure; I50.22 Chronic systolic (congestive) heart failure; E11.9 Type 2 diabetes mellitus without complications; Z79.899 Other long term (current) drug therapy; Z88.2 Allergy status to sulfonamides; Z88.5 Allergy status to narcotic agent; Z91.018 Allergy to other foods
CPT/HCPCS: 71045; 74176; 80053; 81003; 83880; 84484; 85025; 93005; 93010; 96365; 99285-25; J0456; J0696; J2270; J7050

== ENCOUNTER 2025-02-07 03:48 | Emergency (ER) | payer OTHER ==
[~2025-02-07] VITALS: Ht 157.5 cm; Wt 56.7 kg
[2025-02-07 04:54] LABS: BASOPHILS ABSOLUTE AUTO 0.04 K/mm3 (0.00-0.23); BASOPHILS PERCENT AUTO 1 % (0-2); EOSINOPHILS ABSOLUTE AUTO 0.12 K/mm3 (0.00-0.68); EOSINOPHILS PERCENT AUTO 2 % (0-6); Hematocrit 39.9 % (33.0-51.0); Hemoglobin 12.8 g/dL (11.5-16.0); IMMATURE GRAN ABSOLUTE AUTO 0.02 K/mm3 (0.00-0.10); IMMATURE GRAN PERCENT AUTO 0 % (0-1); LYMPHOCYTES ABSOLUTE AUTO 2.35 K/mm3 (0.84-5.20); LYMPHOCYTES PERCENT AUTO 28 % (21-46); MONOCYTES ABSOLUTE AUTO 0.63 K/mm3 (0.16-1.47); MONOCYTES PERCENT AUTO 8 % (4-13); Mean Corpuscular HGB 29.3 pg (26.0-34.0); Mean Corpuscular HGB Conc 32.1 g/dL (31.5-36.5); Mean Corpuscular Volume 91 fL (80-100); NEUTROPHILS ABSOLUTE AUTO 5.11 K/mm3 (1.96-9.15); NEUTROPHILS PERCENT AUTO 62 % (41-73); RDW Coefficient Variation 14.5 % (11.7-14.2); RDW Standard Deviation 48.7 fL (35.1-46.3); Red Blood Cell Count 4.37 M/mm3 (3.80-5.20); White Blood Cell Count 8.27 K/mm3 (4.00-11.30)
[2025-02-07 05:18] LABS: Platelet Count 182 K/mm3 (150-400)
[2025-02-07 05:22] LABS: Albumin, Blood 3.7 g/dL (3.4-5.0); Albumin/Globulin Ratio 0.9 (0.8-1.8); Bilirubin, Total 0.5 mg/dL (0.1-1.0); Bun/Creatinine Ratio 35.8 (12.0-20.0); Calcium, Blood 9.9 mg/dL (8.5-10.1); Creatinine, Blood 0.7 mg/dL (0.40-1.00); Globulin, Blood 3.9 g/dL (2.2-4.0); Potassium, Blood 4.6 mmol/L (3.5-5.5); Total Protein, Blood 7.6 g/dL (6.4-8.2)
[2025-02-07 05:30] VITALS: BP 156/101
[2025-02-07] MEDS ORDERED: ALEVAZOL56.7 G1 TOP (05:53)
[2025-02-07] MEDS ORDERED: Furosemide 10 MG / ML 2ML Vial IV ONE (05:55)
== END 2025-02-07 06:44 | disposition home or self-care (01) ==
LOC: ER 03:48
PROVIDERS: Emergency Medicine
DX: I11.0 Hypertensive heart disease with heart failure (principal); I50.9 Heart failure, unspecified; B35.6 Tinea cruris; E11.9 Type 2 diabetes mellitus without complications; Z79.899 Other long term (current) drug therapy; Z88.2 Allergy status to sulfonamides; Z91.018 Allergy to other foods; Z88.5 Allergy status to narcotic agent
CPT/HCPCS: 71045; 80053; 83880; 84484; 85025; 93005; 93010; 96374; 99285-25; J1938

== ENCOUNTER 2025-07-09 19:09 | Emergency (ER) | payer OTHER ==
[~2025-07-09] VITALS: Ht 165.1 cm; Wt 56.7 kg
[~2025-07-09 19:09] MED LIST changes: +ALEVAZOL56.7 G1 TOP
[2025-07-09 20:14] LABS: BASOPHILS ABSOLUTE AUTO 0.04 K/mm3 (0.00-0.23); BASOPHILS PERCENT AUTO 1 % (0-2); EOSINOPHILS ABSOLUTE AUTO 0.07 K/mm3 (0.00-0.68); EOSINOPHILS PERCENT AUTO 1 % (0-6); Hematocrit 36.1 % (33.0-51.0); Hemoglobin 11.9 g/dL (11.5-16.0); IMMATURE GRAN ABSOLUTE AUTO 0.01 K/mm3 (0.00-0.10); IMMATURE GRAN PERCENT AUTO 0 % (0-1); LYMPHOCYTES ABSOLUTE AUTO 2.02 K/mm3 (0.84-5.20); LYMPHOCYTES PERCENT AUTO 35 % (21-46); MONOCYTES ABSOLUTE AUTO 0.46 K/mm3 (0.16-1.47); MONOCYTES PERCENT AUTO 8 % (4-13); Mean Corpuscular HGB Conc 33.0 g/dL (31.5-36.5); Mean Corpuscular Volume 95 fL (80-100); NEUTROPHILS ABSOLUTE AUTO 3.21 K/mm3 (1.96-9.15); NEUTROPHILS PERCENT AUTO 55 % (41-73); NRBC ABSOLUTE 0.00 K/mm3 (0.00-0.02); NRBC Auto 0.0 /100 WBC (0.0-0.2); Platelet Count 193 K/mm3 (150-400); RDW Coefficient Variation 16.0 % (11.7-14.2); RDW Standard Deviation 56.8 fL (35.1-46.3)
[2025-07-09 20:37] LABS: Alanine Aminotransfer (ALT/SGP 27.0 U/L (12-78); Albumin, Blood 3.7 g/dL (3.4-5.0); Albumin/Globulin Ratio 1.0 (0.8-1.8); Anion Gap 6.0 mmol/L (3-11); Aspartate Aminotrans (AST/SGOT 31.0 U/L (12-37); Bilirubin, Total 0.7 mg/dL (0.1-1.0); Blood Urea Nitrogen 22.0 mg/dL (8-24); CO2, Blood 30.0 mmol/L (21-32); Calcium, Blood 10.1 mg/dL (8.5-10.1); Chloride, Blood 104.0 mmol/L (98-108); Creatinine, Blood 0.6 mg/dL (0.40-1.00); Globulin, Blood 3.8 g/dL (2.2-4.0); Glucose, Blood 104.0 mg/dL (70-99); Potassium, Blood 4.3 mmol/L (3.5-5.5); Sodium, Blood 136.0 mmol/L (136-145); Total Protein, Blood 7.5 g/dL (6.4-8.2)
[2025-07-09] MEDS ORDERED: FentaNYL Citrate 50 MCG/ML 2 ML Injection IV ONE (22:00)
[2025-07-09 23:30] VITALS: BP 147/91
[2025-07-09] MEDS ORDERED: LIDO700A20 TOP (23:47)
== END 2025-07-09 23:57 | disposition home or self-care (01) ==
LOC: ER 19:09
PROVIDERS: Emergency Medicine
DX: M54.6 Pain in thoracic spine (principal); I48.91 Unspecified atrial fibrillation; E11.9 Type 2 diabetes mellitus without complications; I11.0 Hypertensive heart disease with heart failure; I50.9 Heart failure, unspecified; E78.5 Hyperlipidemia, unspecified; Z79.01 Long term (current) use of anticoagulants; Z88.2 Allergy status to sulfonamides; Z88.8 Allergy status to other drugs, medicaments and biological substances; Z91.018 Allergy to other foods; Z79.899 Other long term (current) drug therapy
CPT/HCPCS: 71046; 80053; 83690; 84484; 85025; J3010

== ENCOUNTER 2025-09-05 02:33 | Inpatient (IN) | payer OTHER ==
[~2025-09-05] VITALS: Ht 157.5 cm; Wt 58.6 kg
[~2025-09-05 02:33] MED LIST changes: +LIDO700A20 TOP
[2025-09-05 03:05] LABS: BASOPHILS ABSOLUTE AUTO 0.06 K/mm3 (0.00-0.23); BASOPHILS PERCENT AUTO 1 % (0-2); EOSINOPHILS ABSOLUTE AUTO 0.22 K/mm3 (0.00-0.68); EOSINOPHILS PERCENT AUTO 2 % (0-6); Hematocrit 44.5 % (33.0-51.0); Hemoglobin 14.0 g/dL (11.5-16.0); IMMATURE GRAN ABSOLUTE AUTO 0.02 K/mm3 (0.00-0.10); IMMATURE GRAN PERCENT AUTO 0 % (0-1); LYMPHOCYTES ABSOLUTE AUTO 2.58 K/mm3 (0.84-5.20); LYMPHOCYTES PERCENT AUTO 29 % (21-46); MONOCYTES ABSOLUTE AUTO 0.72 K/mm3 (0.16-1.47); MONOCYTES PERCENT AUTO 8 % (4-13); Mean Corpuscular HGB Conc 31.5 g/dL (31.5-36.5); Mean Corpuscular Volume 98 fL (80-100); NEUTROPHILS ABSOLUTE AUTO 5.42 K/mm3 (1.96-9.15); NEUTROPHILS PERCENT AUTO 60 % (41-73); NRBC ABSOLUTE 0.00 K/mm3 (0.00-0.02); NRBC Auto 0.0 /100 WBC (0.0-0.2); Platelet Count 210 K/mm3 (150-400); RDW Coefficient Variation 13.6 % (11.7-14.2); RDW Standard Deviation 49.3 fL (35.1-46.3)
[2025-09-05 03:28] LABS: Alanine Aminotransfer (ALT/SGP 40.0 U/L (12-78); Albumin, Blood 3.8 g/dL (3.4-5.0); Albumin/Globulin Ratio 1.0 (0.8-1.8); Anion Gap 9.0 mmol/L (3-11); Aspartate Aminotrans (AST/SGOT 49.0 U/L (12-37); Bilirubin, Total 0.6 mg/dL (0.1-1.0); Blood Urea Nitrogen 29.0 mg/dL (8-24); CO2, Blood 29.0 mmol/L (21-32); Calcium, Blood 9.5 mg/dL (8.5-10.1); Chloride, Blood 104.0 mmol/L (98-108); Creatinine, Blood 1.09 mg/dL (0.40-1.00); Globulin, Blood 4.0 g/dL (2.2-4.0); Glucose, Blood 142.0 mg/dL (70-99); Potassium, Blood 4.5 mmol/L (3.5-5.5); Sodium, Blood 137.0 mmol/L (136-145); Total Protein, Blood 7.8 g/dL (6.4-8.2)
[2025-09-05] MEDS ORDERED: NS 1,000 ML IV SCH ×2 (05:15→07:00)
[2025-09-05] MEDS ORDERED: Dexamethasone Sod Phos 10 MG/ML 1ML VIAL IV ONE (07:00)
[2025-09-05] MEDS ORDERED: DiphenhydrAMINE HCl 50 MG/ML 1ML Vial IV ONE (07:00)
[2025-09-05] MEDS ORDERED: Prochlorperazine Edisylate 10 mg Vial IV ONE (07:00)
[2025-09-05 07:09] LABS: Source, Urine Clean Catch
[2025-09-05 07:17] LABS: Bilirubin, Urine Neg (Neg); Color, Urine Yellow (P-Yellow); Glucose Qualitative, Urine Neg (Neg); Ketones, Urine Neg (Neg); Leukocyte Esterase, Urine Neg (Neg); Protein, Urine 1+ (Neg); Specific Gravity, Urine 1.015 (1.003-1.022); Urobilinogen, Urine NORM (Normal)
[2025-09-05] MEDS ORDERED: Ondansetron HCl 2 MG / ML 2ML Vial IV PRN (11:25)
[2025-09-05] MEDS ORDERED: FLU VACC TS2025(65UP)/MF59C/PF 45 MCG/0.5 ML SYRINGE IM SCH (11:30)
[2025-09-05 14:46] VITALS: BP 159/100
[2025-09-05] MEDS ORDERED: Insulin Human Lispro 100 Units/ML 3ML Syringe SC SCH (16:30)
--- NOTE | 2025-09-05 17:37 | NUR ---
End of shift summary: Patient is alert and oriented x3 with some noted forgetfulness; pleasant and cooperative with care. Patient with continued pain and new orders obtained and administered. Patient deneis SOB, CP or pressure, N/V/D. All medications administered per EMAR. Patient resting at this time with spouse in room. Bed in lowest positioning, call light within reach. Will continue to monitor until next shift nurse arrives and report is given.
[2025-09-05 19:43] VITALS: BP 128/72
[2025-09-06] VITALS (9 sets, daily range): BP systolic 95–148; BP diastolic 58–98
[2025-09-06 06:02] LABS: BASOPHILS ABSOLUTE AUTO 0.01 K/mm3 (0.00-0.23); BASOPHILS PERCENT AUTO 0 % (0-2); EOSINOPHILS ABSOLUTE AUTO 0.00 K/mm3 (0.00-0.68); EOSINOPHILS PERCENT AUTO 0 % (0-6); Hematocrit 37.6 % (33.0-51.0); Hemoglobin 12.2 g/dL (11.5-16.0); IMMATURE GRAN ABSOLUTE AUTO 0.03 K/mm3 (0.00-0.10); IMMATURE GRAN PERCENT AUTO 0 % (0-1); LYMPHOCYTES ABSOLUTE AUTO 1.29 K/mm3 (0.84-5.20); LYMPHOCYTES PERCENT AUTO 13 % (21-46); MONOCYTES ABSOLUTE AUTO 0.81 K/mm3 (0.16-1.47); MONOCYTES PERCENT AUTO 8 % (4-13); Mean Corpuscular HGB Conc 32.4 g/dL (31.5-36.5); Mean Corpuscular Volume 95 fL (80-100); NEUTROPHILS ABSOLUTE AUTO 7.54 K/mm3 (1.96-9.15); NEUTROPHILS PERCENT AUTO 78 % (41-73); NRBC ABSOLUTE 0.00 K/mm3 (0.00-0.02); NRBC Auto 0.0 /100 WBC (0.0-0.2); Platelet Count 187 K/mm3 (150-400); RDW Coefficient Variation 13.4 % (11.7-14.2); RDW Standard Deviation 46.6 fL (35.1-46.3)
--- NOTE | 2025-09-06 06:37 | NUR ---
A/Ox3, VSS ON RA. PT DENIES SOB, NAUSEA, CHEST PAIN. REPORTS 8/10 GENERALIZED PAIN, PRN OXY EFFECTIVE. UP TO RESTROOM WITH 1P ASSIST/FWW, PT TOLERATED WELL. NO ACUTE CHANGES OVERNIGHT. SAFETY PRECAUTIONS IN PLACE.
[2025-09-06 06:51] LABS: Alanine Aminotransfer (ALT/SGP 31.0 U/L (12-78); Albumin, Blood 3.2 g/dL (3.4-5.0); Albumin/Globulin Ratio 1.1 (0.8-1.8); Anion Gap 8.0 mmol/L (3-11); Aspartate Aminotrans (AST/SGOT 28.0 U/L (12-37); Bilirubin, Total 0.6 mg/dL (0.1-1.0); Blood Urea Nitrogen 19.0 mg/dL (8-24); CO2, Blood 25.0 mmol/L (21-32); Calcium, Blood 8.9 mg/dL (8.5-10.1); Chloride, Blood 106.0 mmol/L (98-108); Creatinine, Blood 0.55 mg/dL (0.40-1.00); Globulin, Blood 3.0 g/dL (2.2-4.0); Glucose, Blood 118.0 mg/dL (70-99); Potassium, Blood 4.1 mmol/L (3.5-5.5); Sodium, Blood 135.0 mmol/L (136-145); Total Protein, Blood 6.2 g/dL (6.4-8.2)
[2025-09-06] MEDS ORDERED: Ascorbic Acid 1000 MG Tab PO SCH (09:00)
[2025-09-06] MEDS ORDERED: Multivitamins 1 Tab PO SCH (09:00)
[2025-09-06] MEDS ORDERED: Enoxaparin 40 MG/0.4 ML SYR SC SCH (09:00)
--- NOTE | 2025-09-06 11:59 | NUR ---
Pt. is awake in bed when she welcomed my visit. Pt. is pleasant and verbalizes that she recalls this break and load operator fomr a previous hospital visit. Facilitated a life review and consider matters of family and flo. Listen with interest and empathy. Pt. displayed evidence of trust and having been encouraged.. Prayed with the Pt. Pt. verbalized gratitude for the spiritual care visit.
--- NOTE | 2025-09-06 16:41 | NUR ---
SHIFT SUMMARY: A&OX4 THIS SHIFT. PLEASANT AND COOPERATIVE WITH CARE. PT UP OUT OF BED MULTIPLE TIMES THIS SHIFT WITH A SBA. MEDICATED FOR PAIN PER DEC. PT REMAINS ON ROOM AIR WITH O2 SATS >90%. NO ACUTE EVENTS. LYING IN BED AT THIS TIME. BREATHING EQUAL AND NONLABORED. BED LOCKED AND IN THE LOWEST POSITION. CALL LT WITHIN REACH.
--- NOTE | 2025-09-06 17:24 | NUR ---
PROVIDER CONTACT: TELE NOTIFIED THIS NURSE THAT PT HAD AN 8 BEAT RUN OF V-TACH. DR MARSH NOTIFIED. TO PLACE ORDERS.
[2025-09-06 19:12] LABS: Anion Gap 8.0 mmol/L (3-11); Blood Urea Nitrogen 30.0 mg/dL (8-24); CO2, Blood 28.0 mmol/L (21-32); Calcium, Blood 8.9 mg/dL (8.5-10.1); Chloride, Blood 103.0 mmol/L (98-108); Creatinine, Blood 0.9 mg/dL (0.40-1.00); Glucose, Blood 127.0 mg/dL (70-99); Magnesium, Blood 2.0 mg/dL (1.6-2.4); Potassium, Blood 4.1 mmol/L (3.5-5.5); Sodium, Blood 135.0 mmol/L (136-145)
[2025-09-07] VITALS (7 sets, daily range): BP systolic 86–127; BP diastolic 59–75
[2025-09-07 05:54] LABS: Anion Gap 8.0 mmol/L (3-11); Blood Urea Nitrogen 28.0 mg/dL (8-24); CO2, Blood 27.0 mmol/L (21-32); Calcium, Blood 8.7 mg/dL (8.5-10.1); Chloride, Blood 104.0 mmol/L (98-108); Creatinine, Blood 0.7 mg/dL (0.40-1.00); Glucose, Blood 103.0 mg/dL (70-99); Potassium, Blood 3.8 mmol/L (3.5-5.5); Sodium, Blood 135.0 mmol/L (136-145)
--- NOTE | 2025-09-07 06:41 | NUR ---
SHIFT SUMARY; PT A/OX3-4 AND SBA W/ FWW WHEN AMBULATING TO THE RESTROOM. PT S SYSTOLIC BLOOD PRESSURE HAS RAISED BACK UP TO >110 , HOWEVER PT HAS 2+ PITTING EDEMA IN BLE. PT HAS CONSUMED WATER INTAKE PRIOR TO FALLING ASLEEP. SEE INTAKE AND OUTPUT NOTES. PT CONTINUES TO WEAR 2 L OF O2 WHILE ASLEEP SATING >95%. TITRATING PT DOWN TO 1 L NC. PT SEEN TOLERATING RA WHEN AMBULATING TO THE RESTROOM. LABS DRAWN EARLIER THIS EVENING AND THIS AM. SEE RESULTS. PT MEDICATED FOR PAIN PER EMAR. PT GIVEN SLEEP AID AT PM, PT OBSERVED SLEEPING ABOUT 2 HOURS AFTER GIVEN. VSS AND TELE READING AFIB AT 71 BPM W/ BBB. BED IN LOWEST POSITION AND CALL LIGHT WITHIN REACH.
--- NOTE | 2025-09-07 18:12 | NUR ---
SHIFT SUMMARY NO ACUTE CHANGES, A/Ox4, ABLE TO MAKE NEEDS KNOWN. VITALS STABLE. MEDICATED PER EMAR FOR PAIN TO R FLANK, K PAD PROVIDED FOR HEAT THERAPY - EFFECTIVE PER PT. PLAN WAS FOR PT TO DC TODAY. PT INFORMED RN SHE WOULD CONTACT FOR RIDE AROUND 1200. AFTER MULTIPLE REMINDERS PT REPORTS SHE HAS NOT CALLED SPOUSE AND DOES NOT WANT TO DISCHARGE AT LEAST UNTIL TOMORROW DUE TO CONCERNS FOR HER SAFETY AT HOME. SHE STATES SHE DOES NOT FEEL STRONG ENOUGH TO CARE FOR SELF AND FEARS HAS A TEMPER AND WILL BECOME AGITATED WITH HER IF SHE ASKS FOR HELP. PT DENIES CONCERNS FOR PHYSICAL HARM OR HX OF PHYSICAL HARM. RN INFORMED CARE MANAGEMENT, ELECTRICAL MACHINE BUILDER, AND PROVIDER. PROVIDER HOLDING OFF DC UNTIL 09/08/25, AWARE OF DC BETWEEN [phone]. PT WILL BE DISCHARGING WITH SERVICES INCLUDING FORK LIFT TECHNICIAN TO ASSIST WITH ACQUIRING CG. PT CURRENTLY RESTING IN CHAIR WITH CALL LIGHT IN REACH, EATING DINNER WITH SPOUSE AT BEDSIDE.
[2025-09-08 00:44] VITALS: BP 130/79
--- NOTE | 2025-09-08 01:55 | NUR ---
PT'S SBP BELOW 90 PER BP MACHINE, HOWEVER MAP ABOVE 65. BP RECHECKED MANUALLY, READING 94/64. TELETECH CALLED AND VERIFIED RATE AND RHYTHM AT AFIB 66 BPM W/ BBB. PT HAS NO S/SXS AT THIS TIME. DR. VILLATORO MADE AWARE VIA PHONE. INSTRUCTED TO KEEP MONITORING BP AND TO CALL IF PT BECOMES SYMPTAMATIC, MAP DROPS BELOW 65, OR SBP DROPS <90.
[2025-09-08 04:07] VITALS: BP 115/79
--- NOTE | 2025-09-08 05:14 | NUR ---
SHIFT SUMMARY; PT A/OX4 AND A SBA W/ FWW TO THE RESTROOM. PT'S SYSTOLIC BLOOD PRESSURE HAD SOFTER READS AT THE BEGINNING OF THE SHIFT. DR. VILLATORO NOTIFIED. SEE NURSE'S NOTE. SYSTOLIC BLOOD PRESSURES HAVE IMPROVED THROUGHOUT THE NIGHT. PT EXPERIENCING R BACK PAIN. PT GIVEN HEATING PAD AND MEDICATED PER EMAR. PT ON TELE READING AFIB 66 BPM. CALL LIGHT WITHIN REACH AND BED IN LOWEST POSITION.
[2025-09-08 07:18] VITALS: BP 122/81
--- NOTE | 2025-09-08 10:49 | NUR ---
PT DISCHARGED HOME c HH SERVICES. NO NEW RX SENT TO PHARMACY, NEW MEDICATION DOSES REVIEWED WITH PT. PT VERBALIZES UNDERSTANDING. PIV REMOVED AND SITE APPEARS WNL. TELE REMOVED/CLEANED AND SENT TO PCU. RN VERIFIED WITH PROVIDER PT CLEAR TO DC WITH YESTERDAY'S ORDERS. [place] CONFIRMS PT CLEAR TO DC. PT ABLE TO STAND AND AMBULATE INDEPENDENTLY c FWW TO WC AND WHEELED DOWN BY EEG TECH c SPOUSE AT BEDSIDE.
== END 2025-09-08 10:43 | disposition home health service (06) | DRG 291 ==
LOC: ER 02:33 → MEDS 02:34 → ENPENDDIS 09-07 12:21 → MEDS 09-08 10:43
PROVIDERS: Emergency Medicine; Student in an Organized Health Care Education/Training Program; ADMIT Student in an Organized Health Care Education/Training Program
DX: I11.0 Hypertensive heart disease with heart failure (principal); I50.23 Acute on chronic systolic (congestive) heart failure; J96.01 Acute respiratory failure with hypoxia; N17.9 Acute kidney failure, unspecified; M19.90 Unspecified osteoarthritis, unspecified site; I48.91 Unspecified atrial fibrillation; E11.9 Type 2 diabetes mellitus without complications; I34.0 Nonrheumatic mitral (valve) insufficiency; I27.22 Pulmonary hypertension due to left heart disease; Z86.718 Personal history of other venous thrombosis and embolism; Z88.2 Allergy status to sulfonamides; Z88.5 Allergy status to narcotic agent; Z91.018 Allergy to other foods; Z90.49 Acquired absence of other specified parts of digestive tract; Z95.0 Presence of cardiac pacemaker; Z79.01 Long term (current) use of anticoagulants; Z79.899 Other long term (current) drug therapy
CPT/HCPCS: 36415; 70450; 71045; 74177; 80048; 80053; 82947; 83735; 83880; 84484; 85025; 93005; 93010; 93306; 96361; 96374-59; 96375; 96376; 97110; 97116; 97161; 97530; 99285-25; A9270; G0378; J0780; J1100; J1200; J1938; J7030; Q9967